=== PATIENT | male | born 1950 | race Caucasian/White ===

== ENCOUNTER 2021-06-05 06:41 | Day surgery (SDC) | payer OTHER, MEDICARE ==
[~2021-06-05 06:41] MED LIST: Bupivacaine 0.5% 50 ML MDV ONE
[2021-06-05] MEDS ORDERED: Lactated Ringers 1,000 ML IV SCH (07:30)
[2021-06-05] MEDS ORDERED: Nozin Nasal Sanitizer NASBOTH SCH (07:30)
[2021-06-05] MEDS ORDERED: ceFAZolin 2 GM in Premix Bag 1 BAG IV ONE (07:30)
[2021-06-05] MEDS ORDERED: Propofol 200 MG/20 ML SDV ONE (07:41)
[2021-06-05] MEDS ORDERED: fentaNYL 100 MCG/2 ML SDV ONE (07:42)
[2021-06-05] MEDS ORDERED: Midazolam 1 MG/ML 2 ML SDV ONE (07:42)
[2021-06-05] MEDS ORDERED: Morphine 2 MG/ML SYRINGE IVPUSH PRN (10:23)
[2021-06-05] MEDS ORDERED: Cholestyramine/Sucrose Powder 4 GM Packet PO PRN (10:30)
[2021-06-05] MEDS ORDERED: Simethicone 125 MG Tab.Chew PO PRN (10:34)
[2021-06-05] MEDS: Ketorolac 30 MG/ML SDV IVPUSH SCH ×2 (12:56→20:45)
[2021-06-05] MEDS: Sodium Chloride 0.9% 1,000 ML IV SCH ×2 (13:01→21:45)
[2021-06-05] MEDS: traMADol 50 MG Tab PO PRN (14:04)
[2021-06-05] MEDS ORDERED: Bupivacaine 0.5% 50 ML MDV INJECT ONE (14:17)
[2021-06-05] MEDS: ceFAZolin 1 GM in Premix Bag 1 BAG IV SCH ×2 (15:37→23:25)
[2021-06-05] MEDS: Acetaminophen 325 MG Tab PO SCH ×2 (17:53→23:24)
[2021-06-05] MEDS: Nozin Nasal Sanitizer NASBOTH SCH (20:47)
[2021-06-05] MEDS: Aspirin 325 MG Tab.EC PO SCH (20:49)
[2021-06-05] MEDS: Docusate Sodium 100 MG Cap PO SCH (20:49)
[2021-06-05] MEDS: Acetaminophen/oxyCODONE 325-5 MG Tab PO PRN (23:25)
[2021-06-06] MEDS: Ketorolac 30 MG/ML SDV IVPUSH SCH (04:35)
[2021-06-06] MEDS: Acetaminophen 325 MG Tab PO SCH ×4 (04:41→23:26)
[2021-06-06] MEDS: Sodium Chloride 0.9% 1,000 ML IV SCH (04:48)
[2021-06-06] MEDS: Acetaminophen/oxyCODONE 325-5 MG Tab PO PRN ×2 (07:48→13:39)
[2021-06-06] MEDS: traMADol 50 MG Tab PO PRN ×3 (08:41→23:27)
[2021-06-06] MEDS: Aspirin 325 MG Tab.EC PO SCH ×2 (09:27→22:15)
[2021-06-06] MEDS: Pantoprazole 40 MG Tab.CR PO SCH (09:28)
[2021-06-06] MEDS: Docusate Sodium 100 MG Cap PO SCH ×2 (09:28→22:15)
[2021-06-06] MEDS: Nozin Nasal Sanitizer NASBOTH SCH ×2 (09:28→22:14)
[2021-06-06] MEDS: Fluticasone NASAL Spray 16 GM Bottle NASBOTH SCH (10:39)
[2021-06-06] MEDS: Ondansetron 4 MG Tab.DIS PO PRN (15:54)
[2021-06-07] MEDS: traMADol 50 MG Tab PO PRN ×2 (04:28→08:30)
[2021-06-07] MEDS: Acetaminophen 325 MG Tab PO SCH ×2 (04:35→11:36)
[2021-06-07] MEDS: Pantoprazole 40 MG Tab.CR PO SCH (07:18)
[2021-06-07] MEDS: Docusate Sodium 100 MG Cap PO SCH (08:29)
[2021-06-07] MEDS: Fluticasone NASAL Spray 16 GM Bottle NASBOTH SCH (08:30)
[2021-06-07] MEDS: Aspirin 325 MG Tab.EC PO SCH (08:30)
[2021-06-07] MEDS: Nozin Nasal Sanitizer NASBOTH SCH (08:30)
[2021-06-07] MEDS: Ondansetron 4 MG Tab.DIS PO PRN (09:02)
[2021-06-07 10:46] VITALS: BP 108/76; PULSE 88
== END 2021-06-07 12:50 | disposition home or self-care (01) ==
LOC: JP.SDS 06:41 → JP.MS 10:23 → JP.SDS 06-07 12:50
PROVIDERS: ATTEND Specialist
DX: M17.12 Unilateral primary osteoarthritis, left knee (principal); F17.210 Nicotine dependence, cigarettes, uncomplicated; Z88.1 Allergy status to other antibiotic agents; Z91.048 Other nonmedicinal substance allergy status; Z96.651 Presence of right artificial knee joint
CPT/HCPCS: 27446; 36415; 73560; 80053; 85027; 93005; 97110; 97161; 97530; 97535; A9270; C1713; C1776; J0690; J1885; J2250; J2704; J3010; J3490; J7030; J7120; Q0162

== ENCOUNTER 2024-03-15 13:43 | Emergency (ER) | payer OTHER ==
[2024-03-15] MEDS: Acetaminophen 500 MG Tab PO ONE (14:40)
[2024-03-15] MEDS: Albuterol/Ipratropium 3.0-0.5 MG/3 ML Neb Soln NEB ONE (14:40)
[2024-03-15] MEDS: methylPREDNISolone Sodium Succinate 125 MG/2 ML SDV IVPUSH ONE (14:40)
[2024-03-15] MEDS: Sodium Chloride 0.9% 500 ML IV ONE ×2 (14:40→15:22)
[2024-03-15 14:44] LABS: BASOPHILS ABSOLUTE AUTO 0.03 K/uL (0.00-0.10); BASOPHILS PERCENT AUTO 0.6 % (0.1-1.3); EOSINOPHILS PERCENT AUTO 0.4 % (0.0-5.4); HEMATOCRIT 30.1 % (38.4-49.7); HEMOGLOBIN 10.7 g/dL (12.9-16.9); IMMATURE GRAN PERCENT AUTO 0.2 % (0.0-0.7); LYMPHOCYTES ABSOLUTE AUTO 0.19 K/uL (0.8-3.3); LYMPHOCYTES PERCENT AUTO 3.5 % (11.4-47.7); MEAN CORPUSCULAR HEMOGLOBIN 32.7 pg (31.6-35.5); MEAN CORPUSCULAR HGB CONC 35.5 g/dL (31.6-35.5); MONOCYTES ABSOLUTE AUTO 0.87 K/uL (0.20-0.90); NEUTROPHILS ABSOLUTE AUTO 4.31 K/uL (1.0-7.6); NEUTROPHILS PERCENT AUTO 79.3 % (40.0-78.1); PLATELET COUNT,PLT 152 K/uL (130-375); RED BLOOD CELL COUNT 3.27 M/uL (4.14-5.76); WHITE BLOOD CELL COUNT,WBC 5.4 K/uL (3.2-11.0)
[2024-03-15 14:47] LABS: EOSINOPHILS ABSOLUTE AUTO 0.02 K/uL (0.00-0.40); IMMATURE GRAN ABSOLUTE AUTO 0.01 K/uL (0.00-0.23)
[2024-03-15 15:04] LABS: A/G RATIO 1.2 (1.2-2.2); ALANINE AMINOTRANSFERASE,ALT 28 U/L (12-78); ALBUMIN 3.8 g/dL (3.4-5.0); ALKALINE PHOSPHATASE 65 U/L (46-116); ASPARTATE AMNIOTRANSFERASE,AST 22 U/L (15-37); BILIRUBIN TOTAL 0.5 mg/dL (0.2-1.0); BLOOD UREA NITROGEN,BUN 28 mg/dL (7-18); CARBON DIOXIDE,CO2 23 mmol/L (21-32); CHLORIDE,CL 104 mmol/L (100-108); EST CRCL DRUG DOSING (CG) 36.11 mL/min; ESTIMATED GFR 35 mL/min (>60); GLUCOSE RANDOM 98 mg/dL (74-106); PROTEIN TOTAL,TP 7.1 g/dL (6.4-8.2); SODIUM,NA 138 mmol/L (140-148)
[2024-03-15 15:43] VITALS: BP 142/80; PULSE 96
== END 2024-03-15 16:25 | disposition home or self-care (01) ==
LOC: JP.ED 13:43
DX: J44.1 Chronic obstructive pulmonary disease with (acute) exacerbation (principal); J10.1 Influenza due to other identified influenza virus with other respiratory manifestations; I10 Essential (primary) hypertension; K21.9 Gastro-esophageal reflux disease without esophagitis; F17.210 Nicotine dependence, cigarettes, uncomplicated; Z79.899 Other long term (current) drug therapy; Z88.8 Allergy status to other drugs, medicaments and biological substances; Z91.09 Other allergy status, other than to drugs and biological substances
CPT/HCPCS: 36415; 71045; 71045-26; 80053; 85025; 87428-QW; 94640; 96361; 96374; 99284; 99285-25; A9270-GY; J2919; J7040; J7620

== ENCOUNTER 2024-03-23 09:37 | Inpatient (IN) | payer OTHER ==
[2024-03-23 10:47] LABS: BASOPHILS ABSOLUTE AUTO 0.03 K/uL (0.00-0.10); BASOPHILS PERCENT AUTO 0.2 % (0.1-1.3); EOSINOPHILS ABSOLUTE AUTO 0.11 K/uL (0.00-0.40); EOSINOPHILS PERCENT AUTO 0.6 % (0.0-5.4); HEMATOCRIT 35.9 % (38.4-49.7); IMMATURE GRAN ABSOLUTE AUTO 0.35 K/uL (0.00-0.23); LYMPHOCYTES ABSOLUTE AUTO 0.62 K/uL (0.8-3.3); LYMPHOCYTES PERCENT AUTO 3.6 % (11.4-47.7); MEAN CORPUSCULAR HEMOGLOBIN 32.7 pg (31.6-35.5); MEAN CORPUSCULAR HGB CONC 36.2 g/dL (31.6-35.5); MEAN CORPUSCULAR VOLUME 90.4 fL (81.4-99.0); MONOCYTES ABSOLUTE AUTO 1.74 K/uL (0.20-0.90); NEUTROPHILS ABSOLUTE AUTO 14.58 K/uL (1.0-7.6); NEUTROPHILS PERCENT AUTO 83.6 % (40.0-78.1); PLATELET COUNT,PLT 264 K/uL (130-375); RED BLOOD CELL COUNT 3.97 M/uL (4.14-5.76); WHITE BLOOD CELL COUNT,WBC 17.4 K/uL (3.2-11.0)
[2024-03-23 10:48] LABS: BASE EXCESS VENOUS -7.2 mm/L; BICARBONATE,VENOUS 16.5 mmol/L; METHEMOGLOBIN 1.1 %; O2 SATURATION VENOUS 61.3; OXYHEMOGLOBIN 59.4 %; PCO2 VENOUS 29.4 mm/Hg; PH,VENOUS 7.367 (7.350-7.450); TOTAL HEMOGLOBIN 13.4 g/dL (13.5-18.0)
[2024-03-23 11:09] LABS: A/G RATIO 0.8 (1.2-2.2); ALANINE AMINOTRANSFERASE,ALT 59 U/L (12-78); ALBUMIN 3.5 g/dL (3.4-5.0); ALKALINE PHOSPHATASE 67 U/L (46-116); ASPARTATE AMNIOTRANSFERASE,AST 28 U/L (15-37); BILIRUBIN TOTAL 0.8 mg/dL (0.2-1.0); BLOOD UREA NITROGEN,BUN 35 mg/dL (7-18); CALCIUM 8.5 mg/dL (8.5-10.1); CARBON DIOXIDE,CO2 18 mmol/L (21-32); CHLORIDE,CL 105 mmol/L (100-108); CREATININE 2.4 mg/dL (0.8-1.3); EST CRCL DRUG DOSING (CG) 30.09 mL/min; ESTIMATED GFR 28 mL/min (>60); GLUCOSE RANDOM 149 mg/dL (74-106); POTASSIUM,K 4.1 mmol/L (3.6-5.2); PRO B-TYPE NATRIUR PEPT,BNPPRO 110 pg/mL (5-125); PROTEIN TOTAL,TP 7.7 g/dL (6.4-8.2); SODIUM,NA 138 mmol/L (140-148)
[2024-03-23 11:10] LABS: ANION GAP 19.1 mmol/L (5.0-14.0); TROPONIN I HIGH SENSITIVITY 11.5 pg/mL (<=60.3)
[2024-03-23 11:19] LABS: C-REACTIVE PROTEIN 7.6 mg/dL (<0.50)
[2024-03-23 11:19] LABS: CORONAVIRUS COVID-19 NAA NEGATIVE (NEGATIVE); INFLUENZA A NAA POSITIVE (NEGATIVE); INFLUENZA B NAA NEGATIVE (NEGATIVE); RESPIRATORY SYNCYTIAL VIR NAA NEGATIVE (NEGATIVE)
[2024-03-23] MEDS: Ondansetron 4 MG/2 ML SDV IVPUSH ONE (11:19)
[2024-03-23] MEDS: Ibuprofen 400 MG Tab PO ONE (11:19)
[2024-03-23] MEDS: Sodium Chloride 0.9% 1,000 ML IV ONE (11:24)
[2024-03-23] MEDS: cefTRIAXone 1 GM Vial ONE (13:42)
[2024-03-23] MEDS: cefTRIAXone 1 GM in Sodium Chloride 0.9% 50 ML IV ONE (13:48)
[2024-03-23] MEDS ORDERED: Cholestyramine/Sucrose Powder 4 GM Packet PO PRN (15:24)
[2024-03-23] MEDS ORDERED: Sodium Chloride 0.9% 10 ML Syringe FLUSH PRN (15:24)
[2024-03-23] MEDS ORDERED: Polyethylene Glycol 3350 Powder 17 GM Packet PO PRN (15:24)
[2024-03-23] MEDS ORDERED: Triamcinolone Acetonide 0.1% Crm 15 GM Tube TOP PRN (15:24)
[2024-03-23] MEDS ORDERED: SIMETHICONE 80 MG PO PRN (15:24)
[2024-03-23] MEDS ORDERED: Albuterol 0.083% 2.5 MG/3 ML Neb Soln NEB PRN (15:24)
[2024-03-23] MEDS: Enoxaparin 40 MG/0.4 ML Syringe SUBCUT SCH (16:28)
[2024-03-23] MEDS: Azithromycin 500 MG in Sodium Chloride 0.9% 250 ML IV SCH (16:28)
[2024-03-23] MEDS: Sodium Chloride 0.9% 1,000 ML IV SCH (16:29)
[2024-03-23] MEDS: Sodium Chloride 0.9% 50 ML ONE (17:21)
[2024-03-24] MEDS: Simethicone 125 MG Tab.Chew PO PRN (05:00)
[2024-03-24] MEDS: Acetaminophen 325 MG Tab PO PRN (05:00)
[2024-03-24 06:17] LABS: HEMATOCRIT 29.3 % (38.4-49.7); HEMOGLOBIN 10.4 g/dL (12.9-16.9); MEAN CORPUSCULAR HEMOGLOBIN 32.4 pg (31.6-35.5); MEAN CORPUSCULAR HGB CONC 35.5 g/dL (31.6-35.5); MEAN CORPUSCULAR VOLUME 91.3 fL (81.4-99.0); RED BLOOD CELL COUNT 3.21 M/uL (4.14-5.76); WHITE BLOOD CELL COUNT,WBC 10.7 K/uL (3.2-11.0)
[2024-03-24 06:34] LABS: ANION GAP 15.8 mmol/L (5.0-14.0); CALCIUM 7.7 mg/dL (8.5-10.1); CREATININE 2.2 mg/dL (0.8-1.3); EST CRCL DRUG DOSING (CG) 32.82 mL/min; MAGNESIUM 0.5 mg/dL (1.8-2.4); POTASSIUM,K 3.8 mmol/L (3.6-5.2)
[2024-03-24] MEDS: Pantoprazole 40 MG Tab.CR PO SCH (07:54)
[2024-03-24] MEDS: Ondansetron 4 MG/2 ML SDV IV PRN (09:41)
[2024-03-24] MEDS: Fluticasone NASAL Spray 16 GM Bottle NASBOTH SCH (09:41)
[2024-03-24] MEDS: Magnesium Sulfate/Water Premix 2 GM in Premix Bag 1 BAG IV SCH (09:41)
[2024-03-24] MEDS: Magnesium Oxide 400 MG Tab PO SCH (10:40)
[2024-03-24] MEDS: Cholestyramine/Sucrose Powder 4 GM Packet PO SCH (12:30)
[2024-03-24] MEDS: cefTRIAXone 1 GM in Sodium Chloride 0.9% 50 ML IV SCH (12:30)
[2024-03-25 05:58] LABS: HEMATOCRIT 29.5 % (38.4-49.7); HEMOGLOBIN 10.4 g/dL (12.9-16.9); MEAN CORPUSCULAR HEMOGLOBIN 32.2 pg (31.6-35.5); MEAN CORPUSCULAR HGB CONC 35.3 g/dL (31.6-35.5); MEAN CORPUSCULAR VOLUME 91.3 fL (81.4-99.0); RED BLOOD CELL COUNT 3.23 M/uL (4.14-5.76); WHITE BLOOD CELL COUNT,WBC 7.8 K/uL (3.2-11.0)
[2024-03-25 06:15] LABS: CALCIUM 8.1 mg/dL (8.5-10.1); CREATININE 1.9 mg/dL (0.8-1.3); EST CRCL DRUG DOSING (CG) 38.01 mL/min; MAGNESIUM 2.3 mg/dL (1.8-2.4)
[2024-03-25] MEDS: Cholestyramine/Sucrose Powder 4 GM Packet PO SCH (12:26)
[2024-03-25] MEDS ORDERED: Cholestyramine/Sucrose Powder 4 GM Packet PO SCH (14:00)
[2024-03-25] MEDS: Albuterol/Ipratropium 3.0-0.5 MG/3 ML Neb Soln NEB SCH (14:21)
[2024-03-26 06:11] LABS: CALCIUM 8.4 mg/dL (8.5-10.1); CREATININE 1.7 mg/dL (0.8-1.3); EST CRCL DRUG DOSING (CG) 42.48 mL/min; POTASSIUM,K 4.3 mmol/L (3.6-5.2)
[2024-03-26 06:16] LABS: ANION GAP 14.3 mmol/L (5.0-14.0)
[2024-03-26] MEDS: predniSONE 20 MG Tab PO SCH (08:27)
[2024-03-26] MEDS ORDERED: Albuterol/Ipratropium 3.0-0.5 MG/3 ML Neb Soln NEB PRN (16:37)
[2024-03-27 05:28] VITALS: BP 121/66; PULSE 84
== END 2024-03-27 10:45 | disposition home or self-care (01) | DRG 871 ==
LOC: JP.ED 09:37 → JP.MS 14:06
PROVIDERS: ADMIT Hospitalist; ATTEND Hospitalist
PROC: 4A033R1 Measurement of Arterial Saturation, Peripheral, Percutaneous Approach (ICD-10-PCS; principal; 2024-03-23)
PROC: 3E03329 Introduction of Other Anti-infective into Peripheral Vein, Percutaneous Approach (ICD-10-PCS; principal; 2024-03-23)
DX: J10.00 Influenza due to other identified influenza virus with unspecified type of pneumonia (principal); A41.9 Sepsis, unspecified organism; J10.08 Influenza due to other identified influenza virus with other specified pneumonia; Z96.653 Presence of artificial knee joint, bilateral; J15.9 Unspecified bacterial pneumonia; J96.21 Acute and chronic respiratory failure with hypoxia; Z91.048 Other nonmedicinal substance allergy status; J44.0 Chronic obstructive pulmonary disease with (acute) lower respiratory infection; J44.1 Chronic obstructive pulmonary disease with (acute) exacerbation; I10 Essential (primary) hypertension; K21.9 Gastro-esophageal reflux disease without esophagitis; Z96.659 Presence of unspecified artificial knee joint; Z91.09 Other allergy status, other than to drugs and biological substances; Z88.8 Allergy status to other drugs, medicaments and biological substances; Z79.899 Other long term (current) drug therapy; Z85.46 Personal history of malignant neoplasm of prostate; Z98.890 Other specified postprocedural states; Z87.891 Personal history of nicotine dependence
CPT/HCPCS: 0241U; 36415; 71045; 80048; 80053; 82803; 83605; 83735; 83880; 84145; 84484; 85025; 85027; 86140; 87040; 93005; 94640; 96361; 96374; 96375; 97161; 97530; 99285; 99223; 99232; 99238; A9270-GY; J0456; J0696; J1650; J2405; J3475; J3490; J7030; J7050; J7512; J7620